=== PATIENT | male | born 1990 | race Two or more races ===

== ENCOUNTER 2021-08-05 11:31 | Emergency (ER) | payer MEDICAID, OTHER ==
[~2021-08-05] VITALS: Ht 177.8 cm; Wt 81.6 kg
[2021-08-05 14:17] VITALS: BP 117/82
[2021-08-05] MEDS ORDERED: IBUP800T27 PO (15:11)
[2021-08-05] MEDS ORDERED: CYCL-837 PO (15:11)
[2021-08-05] MEDS ORDERED: KETOROLAC TROMETH 60MG/2ML VIAL IM ONE (15:15)
== END 2021-08-05 15:24 | disposition home or self-care (01) ==
LOC: ER 11:31
DX: S39.012A Strain of muscle, fascia and tendon of lower back, initial encounter (principal); Z79.1 Long term (current) use of non-steroidal anti-inflammatories (NSAID); Z79.899 Other long term (current) drug therapy; X58.XXXA Exposure to other specified factors, initial encounter; Y93.89 Activity, other specified; Y92.89 Other specified places as the place of occurrence of the external cause; Y99.8 Other external cause status
CPT/HCPCS: 96372; 99283; J1885

== ENCOUNTER 2022-02-03 12:43 | Emergency (ER) | payer MEDICAID ==
[~2022-02-03] VITALS: Ht 177.8 cm; Wt 84.4 kg
[~2022-02-03 12:43] MED LIST: CYCL-837 PO; IBUP800T27 PO
[2022-02-03 15:56] VITALS: BP 120/87
[2022-02-03] MEDS ORDERED: IBUP600T27 PO (16:11)
[2022-02-03] MEDS ORDERED: CYCL-837 PO (16:13)
[2022-02-03] MEDS ORDERED: IBUPROFEN 600 MG TAB PO ONE (16:15)
== END 2022-02-03 16:27 | disposition home or self-care (01) ==
LOC: ER 12:43
DX: S66.912A Strain of unspecified muscle, fascia and tendon at wrist and hand level, left hand, initial encounter (principal); X58.XXXA Exposure to other specified factors, initial encounter; Y93.89 Activity, other specified; Y92.89 Other specified places as the place of occurrence of the external cause; Y99.8 Other external cause status
CPT/HCPCS: 73130

== ENCOUNTER 2024-01-02 16:53 | Emergency (ER) | payer MEDICAID ==
[~2024-01-02] VITALS: Ht 177.8 cm; Wt 90.1 kg
[~2024-01-02 16:53] MED LIST changes: +IBUP-1454 PO; +IBUP-1456 PO; -IBUP800T27 PO
[2024-01-02 17:02] VITALS: BP 120/84; PULSE 60; RESP 16; O2SAT 95
[2024-01-02] MEDS: KETOROLAC TROMETH 60MG/2ML VIAL IM ONE (17:34)
[2024-01-02] MEDS ORDERED: IBU600T PO (20:06)
== END 2024-01-02 22:15 | disposition home or self-care (01) ==
LOC: ER 16:53
DX: M54.50 Low back pain, unspecified (principal); F12.10 Cannabis abuse, uncomplicated; V43.52XA Car driver injured in collision with other type car in traffic accident, initial encounter; Y93.89 Activity, other specified; Y92.488 Other paved roadways as the place of occurrence of the external cause; Y99.8 Other external cause status
CPT/HCPCS: 72100; 96372; 99283; J1885